=== PATIENT | male | born 1975 | race Caucasian/White ===

== ENCOUNTER → 2024-05-31 06:47 | Day surgery (SDC) | payer BC, SELFPAY | LOC: GI 06:47 | PROVIDERS: ATTENDING PHYSICIAN Specialist | DX: Z12.11 Encounter for screening for malignant neoplasm of colon (principal); D12.2 Benign neoplasm of ascending colon; K64.8 Other hemorrhoids | CPT/HCPCS: 45385; 88305 ==

== ENCOUNTER → 2024-09-04 14:57 | Outpatient (REF) | payer BC, SELFPAY | LOC: HWEVLT 14:57 | PROVIDERS: ATTENDING PHYSICIAN Radiology Vascular & Interventional Radiology | DX: I83.892 Varicose veins of left lower extremity with other complications (principal) | CPT/HCPCS: 93971 ==